=== PATIENT | female | born 1965 | race Caucasian/White ===

== ENCOUNTER → 2017-09-12 | Outpatient (CLI) | payer BC | END | disposition home or self-care (01) | LOC: CDC 09:28 | DX: M25.562 Pain in left knee (principal); M22.42 Chondromalacia patellae, left knee; S83.272A Complex tear of lateral meniscus, current injury, left knee, initial encounter | CPT/HCPCS: 93000 ==

== ENCOUNTER 2017-10-25 10:58 | Day surgery (SDC) | payer BC ==
[~2017-10-25] VITALS: Ht 157.5 cm; Wt 104.3 kg
[~2017-10-25 10:58] MED LIST: CLARITIN,ALAVAR10 MG PO; HYDROCHLOROTH12.5 M3 PO; TYLENOL EXTRA500 MG PO
[2017-10-25 11:24] VITALS: BP 146/79
[2017-10-25 15:06] VITALS: BP 176/86
[2017-10-25 15:59] VITALS: BP 152/76
== END 2017-10-25 15:55 | disposition home or self-care (01) ==
LOC: SDC 10:58
PROVIDERS: Orthopaedic Surgery Hand Surgery
PROC: 0SBD4ZZ Excision of Left Knee Joint, Percutaneous Endoscopic Approach (ICD-10-PCS; principal; 2017-10-25)
DX: S83.272A Complex tear of lateral meniscus, current injury, left knee, initial encounter (principal); M22.42 Chondromalacia patellae, left knee; I10 Essential (primary) hypertension; W10.8XXA Fall (on) (from) other stairs and steps, initial encounter; Y93.F9 Activity, other caregiving; Y92.008 Other place in unspecified non-institutional (private) residence as the place of occurrence of the external cause; Z79.82 Long term (current) use of aspirin; Z87.891 Personal history of nicotine dependence
CPT/HCPCS: 81025; J0171; J1170; J3010; Q0175